=== PATIENT | female | born 1940 | race Two or more races ===

== ENCOUNTER 2017-03-18 10:54 | Emergency (ER) | payer OTHER ==
[~2017-03-18] VITALS: Ht 152.4 cm; Wt 54.4 kg
[~2017-03-18 10:54] MED LIST: LEVO75TA7 PO; METF10002 PO; OXYB5TAB11 PO; RANI150C4 PO
--- NOTE | 2017-03-18 11:18 | NUR ---
PATIENT TO ED DT COUGH AND CONGESTION X 5 DAYS. PATIENT REPORTED CHEST DISCOMFORT WHEN COUGHING. PATIENT IS AFEBRILE. SATING WELL ON ROOM AIR. VSS. GOWNED PT AND PLACED ON TELE MONITOR. PENDING MD MARTIN
[2017-03-18 11:46] VITALS: BP 124/88
--- NOTE | 2017-03-18 11:46 | NUR ---
Patient discharged to home in stable condition. Written and verbal after care instructions given. Patient verbalizes understanding of instruction.
== END 2017-03-18 11:47 | disposition home or self-care (01) ==
LOC: ER 10:55
DX: J20.9 Acute bronchitis, unspecified (principal); I10 Essential (primary) hypertension; E11.9 Type 2 diabetes mellitus without complications; E03.9 Hypothyroidism, unspecified; Z90.49 Acquired absence of other specified parts of digestive tract; Z88.0 Allergy status to penicillin; Z79.84 Long term (current) use of oral hypoglycemic drugs
CPT/HCPCS: A4606; Z7610